=== PATIENT | male | born 1955 | race African-American/Black ===

== ENCOUNTER 2022-03-02 06:38 | Emergency (ER) | payer SELFPAY ==
[2022-03-02 07:51] LABS: RESPIRATORY SYNCYTIAL VIR NAA NEGATIVE (NEGATIVE)
[2022-03-02 07:54] LABS: CORONAVIRUS COVID-19 NAA POSITIVE (NEGATIVE)
[2022-03-02] MEDS ORDERED: Acetaminophen 325 MG Tab PO ONE (09:03)
== END 2022-03-02 09:39 | disposition home or self-care (01) ==
LOC: LL.ED 06:38
DX: U07.1 COVID-19 (principal); F17.210 Nicotine dependence, cigarettes, uncomplicated; Z79.82 Long term (current) use of aspirin; Z79.899 Other long term (current) drug therapy
CPT/HCPCS: 0241U; 36415; 71045; 85025; 99283; 99283-25